=== PATIENT | female | born 1995 | race Two or more races ===

== ENCOUNTER 2019-10-30 00:56 | Emergency (ER) | payer SELFPAY ==
[~2019-10-30] VITALS: Ht 154.9 cm; Wt 52.2 kg
[2019-10-30 01:18] VITALS: BP 115/92
--- NOTE | 2019-10-30 01:20 | NUR ---
WOUND CARE PROVIDED. MD AT BEDSIDE FOR SUTURES
--- NOTE | 2019-10-30 01:26 | NUR ---
RADIOLOGY AT BEDSIDE FOR XRAY
== END 2019-10-30 01:42 | disposition home or self-care (01) ==
LOC: ER 00:56
DX: S01.112A Laceration without foreign body of left eyelid and periocular area, initial encounter (principal); M79.602 Pain in left arm; Z88.0 Allergy status to penicillin; W18.39XA Other fall on same level, initial encounter; Y93.89 Activity, other specified; Y92.89 Other specified places as the place of occurrence of the external cause; Y99.8 Other external cause status
CPT/HCPCS: 12011; 73090; 99283; A6403